=== PATIENT | male | born 1955 | race Caucasian/White ===

== ENCOUNTER 2019-02-05 21:12 | Emergency (ER) | payer BC ==
[2019-02-05] MEDS ORDERED: METHYLPREDNISOLONE PF 125MG/VIAL IM ONE (21:29)
[2019-02-05] MEDS ORDERED: DIPHENHYDRAMINE HCL 50 MG/ML VIAL IM ONE ×2 (21:29→21:47)
--- NOTE | 2019-02-05 21:34 | Emergency Department Record ---
History of Present Illness - General Chief complaint: Rash Stated complaint: RASH ALL OVER Time Seen by Provider: 02/05/19 21:20 Source: Patient Mode of Arrival: Ambulatory Limitations: No limitations - History of Present Illness Initial comments: The patient is here due to an itchy rash all over for about 24 hours. The patient denies any SOB, DEVORA, CP, BRISENO, or trouble swallowing with the rash. He has no hx of similar issues and denies taking any new medicines, foods, skin products or any recent travel. He also has been very fatigued today which is not typical for him. MD complaint: Rash Onset/Timin -: Hour(s) Hx Tetanus Toxoid Vaccination: Yes Year of Tetanus Vaccination: unknown Quality: Other Consistency: Getting worse, Other Improves with: Cold therapy Worsens with: Movement, Other Context: Other Associated symptoms: Itching, Nausea Treatments Prior to Arrival: Other Treatment Prior to Arrival Comment:: aspirin - Related Data Previous Rx's Medication Instructions Recorded Prednisone [Prednisone 20Mg] 40 mg PO DAILY #10 tab 02/05/19 Allergies Allergy/AdvReac Type Severity Reaction Status Date / Time No Known Drug Allergies Allergy Verified 02/05/19 21:25 Travel Screening - Travel/Exposure Within Last 30 Days Have you traveled within the last 30 days?: No Review of Systems Constitutional: Reports: Malaise. Denies: Chills, Fever Eyes: Denies: Eye discharge ENT: Denies: Congestion Respiratory: Denies: Cough Cardiovascular: Denies: Chest pain Endocrine: Reports: Fatigue Gastrointestinal: Denies: Nausea Genitourinary: Denies: Dysuria Musculoskeletal: Denies: Arthralgia Skin: Denies: Bruising Past Medical History - SOCIAL HISTORY Smoking Status: Never smoker Alcohol Use: Occasional Drug Use: None - RESPIRATORY Hx Respiratory Disorders: No - CARDIOVASCULAR Hx Cardio Disorders: No - NEURO Hx Neuro Disorders: No - GI Hx GI Disorders: No - Hx Genitourinary Disorders: No - ENDOCRINE Hx Endocrine Disorders: No - MUSCULOSKELETAL Hx Musculoskeletal Disorders: No - PSYCH Hx Psych Problems: No - HEMATOLOGY/ONCOLOGY Hx Hematology/Oncology Disorders: No Family Medical History Any Significant Family History?: Yes Hx Stroke: Father Physical Exam - General General Appearance: Alert, Oriented x3, Cooperative, No acute distress - Head Head exam: Atraumatic, Normocephalic, Normal inspection - Eye Eye exam: Normal appearance, PERRL, EOMI - ENT Throat exam: Normal inspection. negative: Tonsillar erythema, Tonsillar exudate - Neck Neck exam: Normal inspection, Full ROM. negative: Tenderness - Respiratory Respiratory exam: Normal lung sounds bilaterally. negative: Respiratory distress - Cardiovascular Cardiovascular Exam: Regular rate, Normal rhythm, Normal heart sounds - GI/Abdominal GI/Abdominal exam: Soft, Normal bowel sounds. negative: Tenderness - Extremities Extremities exam: Normal inspection, Full ROM, Normal capillary refill. negative: Tenderness - Back Back exam: Reports: Normal inspection, Full ROM. Denies: Muscle spasm, Rash noted, Tenderness - Neurological Neurological exam: Alert, Altered, Normal gait, Oriented X3, Other (Neg Drift and Rhomberg exams.). negative: Abnormal gait, Motor sensory deficit - Psychiatric Psychiatric exam: negative: Anxious - Skin Skin exam: Erythema (There is a diffuse irregular blanching erythroderma to the arms, legs and trunk but spares the palms and soles. It is nontender and not warm.), Rash Course Vital Signs 02/05/19 21:18 Temperature 97.9 F Pulse Rate [ 107 H Left] Respiratory 16 Rate Blood Pressure 141/99 [Left Arm] Pulse Ox 96 - Reevaluation(s) Reevaluation #1: The patient is doing a lot better at this time. His itching has resolved and the rash is improving. The patient denies any SOB, DEVORA, difficulty swallowing or CP. I did explain the need to F/U next week for recheck and to return to the ER for any worsening symptoms. 02/05/19 22:24 Medical Decision Making - Lab Data Result diagrams: 02/05/19 21:38 02/05/19 21:38 Disposition Disposition: Discharge Clinical Impression: Rash due to allergy Disposition: Home, Self-Care Condition: (2) Stable Instructions: Acute Rash (ED) Additional Instructions: Please take an OTC antihistamine for the itching and continue the Prednisone tomorrow. Please see a family doctor next week for recheck. Return to the ER for any worsening symptoms, pain, fever, or weakness. Prescriptions: Prednisone [Prednisone 20Mg] 40 mg PO DAILY #10 tab Forms: Patient Portal Access Time of Disposition: 22:24 Quality - Quality Measures Quality Measures: N/A - Blood Pressure Screening View Details: Yes Does Patient Have Any of the Following: No Blood Pressure Classification: Hypertensive Reading Systolic Measurement: 141 Diastolic Measurement: 99 Screening for High Blood Pressure: < First Hypertensive BP, F/U Documented > [ [id number]] First Hypertensive Follow-up Interventions: Referral to alternative/primary care provider.
[2019-02-05 21:45] LABS: BASO % 0.1 % (0-6); EOS % 0.4 % (0-6); GRAN % 71.7 % (47-80); HEMATOCRIT 45.5 % (42.0-52.0); HEMOGLOBIN 15.2 gm/dl (14.0-18.0); LYMPH % 22.7 % (16-45); MEAN CELL VOLUME 92.7 fl (81-97); MEAN CORPUSCULAR HGB CONC 33.4 g/dl (32-36); MEAN PLATELET VOLUME 9.2 fl (7.4-10.4); MONO % 5.1 % (0-9); PLATELET COUNT 439 K/uL (130-400); RED BLOOD COUNT 4.91 M/uL (4.40-5.70); RED CELL DISTRIBUTION WIDTH 13.2 % (11.5-14.5); WHITE BLOOD COUNT W/O DIFF 11.2 K/uL (4.2-12.2)
[2019-02-05 21:58] LABS: BLOOD UREA NITROGEN 18 mg/dL (8-23); CREATININE 1.2 mg/dL (0.7-1.2); EST GLOMERULAR FILTRATION RATE > 60 mL/min
[2019-02-05 21:59] LABS: TOTAL PROTEIN 6.6 g/dL (6.6-8.7)
[2019-02-05 22:01] LABS: GLUCOSE,RANDOM 145 mg/dL (74-109)
[2019-02-05 22:04] LABS: ALB/GLOB RATIO 1.6 (1.1-1.8); ALBUMIN 4.1 g/dL (4.0-5.0); ALKALINE PHOSPHATASE 100 U/L (40-129); ALT/SGPT 22 U/L (<41); AST/SGOT 23 U/L (10.0-50.0)
== END 2019-02-05 22:30 | disposition home or self-care (01) ==
LOC: ER 21:12
DX: T78.40XA Allergy, unspecified, initial encounter (principal); R21 Rash and other nonspecific skin eruption; R11.0 Nausea; R53.83 Other fatigue
CPT/HCPCS: 80053; 85025; 96372; 99283; 99284; J1200; J2930